=== PATIENT | male | born 2000 | race Caucasian/White ===

== ENCOUNTER 2019-10-08 00:05 | Emergency (ER) | payer OTHER, SELFPAY ==
[2019-10-08 00:06] VITALS: BP 144/84; PULSE 90; RESP 20; TEMP 36.5; O2SAT 98; BMI 26.8
--- NOTE | 2019-10-08 00:19 | EKG12_ITS ---
Test Reason : DYSRHYTHMIA Blood Pressure : / mmHG Vent. Rate : 066 BPM Atrial Rate : 066 BPM P-R Int : 156 ms QRS Dur : 096 ms QT Int : 370 ms P-R-T Axes : 057 035 030 degrees QTc Int : 387 ms Normal sinus rhythm with sinus arrhythmia Normal ECG Confirmed by VICTORINA DEJESUS ([id number]), rewrite editor JEREMY CHILDRESS ([id number] on 10/09/2019 2:19:00 PM Referred By: TREE Confirmed By:VICTORINA DEJESUS
--- NOTE | 2019-10-08 00:25 | ED.VIS.GEN ---
History of Present Illness Chief Complaint: General Illness Narrative: This is a 19-year-old male who presents after drinking too much caffeine. He drank 3 energy drinks in rapid succession. He now complains of difficulty sleeping nausea and vomiting and palpitations. No chest pain. No shortness of breath. No diarrhea. No recent illness. He denies any medical history. Past Medical History - Allergies and Home Meds Allergies/Adverse Reactions: Allergies No Known Allergies Allergy (Verified 10/08/19 00:08) Primary Care Physician: Patricio Griffin DO [Primary Care Provider] - Past Medical History: None Smoking Status: Never smoker Review of Systems All systems negative except as indicated General: Denies: Fever Eyes: Denies: Visual changes - bilaterally Cardiovascular: Reports: Palpitations. Denies: Chest pain Respiratory: Denies: Dyspnea Gastrointestinal: Reports: Nausea, Vomiting Skin: Denies: Rash Neurological: Denies: Headache Allergy: Denies: Uticaria Physical Exam Vital Signs/Narrative: Vital Signs Temp Pulse Resp BP Pulse Ox 10/08/19 00:06 97.7 F L 90 20 H 144/84 H 98 General: Well nourished Head: Normocephalic Eyes: EOMI ENT: Moist mucous membranes Neck: Supple Cardiovascular: Regular rate, Regular rhythm Respiratory: No distress, CTA bilaterally Abdomen: Soft, Nontender Skin: Normal color Neurological: Alert Psychological: - - Anxious Diagnostic/Tx/Re-eval - Medical Decision Making EKG shows normal sinus rhythm at a rate of 66 with no acute ischemic changes. Patient was given a Zofran ODT. He was advised on supportive care. Patient was discharged. ED Disposition - Plan for ED Patient: Disposition: Home or Assisted Living Diagnosis: Accidental caffeine overdose Instructions: ED Palpitations Referrals: Patricio Griffin DO [Primary Care Provider] - Additional Instructions: You were seen today for caffeine overdose. Do not drink multiple energy drinks. Limit your caffeine intake. Return for new or worsening symptoms.
[2019-10-08] MEDS: Ondansetron ODT 4 MG Tablet PO (00:33)
== END 2019-10-08 01:02 | disposition home or self-care (01) ==
LOC: ED 00:53
PROVIDERS: Emergency Provider Emergency Medicine; PCP Family Medicine
DX: T43.611A Poisoning by caffeine, accidental (unintentional), initial encounter (principal)
CPT/HCPCS: 93005; 99282